=== PATIENT | female | born 1985 | race Caucasian/White ===

== ENCOUNTER 2019-04-02 12:48 | Emergency (ER) | payer OTHER ==
[2019-04-02] MEDS ORDERED: Alteplase* 100 MG VIAL ONE (12:57)
[2019-04-02 13:28] LABS: ABS Eosinophils 0.1 10^3/ul (0-0.6); ABS Lymphocytes 2.7 10^3/ul (1.0-4.8); ABS Monocytes 0.6 10^3/ul (0-0.8); ABS Neutrophils 4.4 10^3/ul (1.5-7.7); Eosinophil % 0.8 %; Hematocrit 38 % (35-47); Hemoglobin 12.9 g/dL (12.0-16.0); Lymphocyte % 34.6 %; Mean Corpuscular HGB Conc 34 g/dL (31-36); Mean Corpuscular Hemoglobin 30 pg (27-31); Mean Corpuscular Volume 89 fL (80-97); Mean Platelet Volume 8.2 fL (7.4-10.4); Nucleated Red Blood Cells % 0.1; Platelet Count 264 10^3/uL (150-450); Red Blood Count 4.29 10^6 /uL (3.70-4.87); Red Cell Distribution Width 13 % (10-15); White Blood Count 7.8 10^3/uL (3.5-10.8)
[2019-04-02 13:44] LABS: Activated Partial Thrombo Time 32.2 seconds (26.0-38.0); Albumin 4.4 g/dL (3.2-5.2); Anion Gap 9 mmol/L (2-11); CO2 Carbon Dioxide 27 mmol/L (22-32); Calcium 9.4 mg/dL (8.6-10.3); Chloride 102 mmol/L (101-111); INR 0.91 (0.82-1.09); Potassium 3.6 mmol/L (3.5-5.0); Sodium 138 mmol/L (135-145)
[2019-04-02 13:50] LABS: ALT 18 U/L (7-52); AST 22 U/L (13-39); Albumin/Globulin Ratio 1.6 (1-3); Alkaline Phosphatase 63 U/L (34-104); BUN/Creatinine Ratio 14.4 (8-20); Blood Urea Nitrogen 14 mg/dL (6-24); Cholesterol 198 mg/dL; EGFR African American 79.1 (>60); EGFR Non-African American 65.4 (>60); Globulin 2.7 g/dL (2-4); Glucose 90 mg/dL (70-100); HDL Cholesterol 88.2 mg/dL; LDL Cholesterol 84 mg/dL; Total Protein 7.1 g/dL (6.4-8.9); Triglycerides 131 mg/dL
[2019-04-02 13:55] LABS: Urine Appearance Clear; Urine Bilirubin Negative (Negative); Urine Blood Negative (Negative); Urine Color Straw; Urine Glucose Negative (Negative); Urine Ketones Negative (Negative); Urine Nitrite Negative (Negative); Urine Protein Negative (Negative); Urine Specific Gravity 1.003 (1.010-1.030); Urine Urobilinogen Negative (Negative)
--- NOTE | 2019-04-02 14:15 | ED ---
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 A code tonya was called at 12:50 during Triage but was called off after the pt received a brain CT. TPA was not administered due to the pt not being in a stroke. The pt reported that she was having an occluded vision described as blurry starting at 1000 this morning. She attempted to text her friends but was unable to understand what she was typing. She describes the occlusion as blurry. She left [place] to come to the ED and began experiencing R sided numbness that originated in her R leg and extended to her R arm and her tongue. The pt also reported that she felt dizzy and had memory loss. The pt stated that she has a Hx of migraines but did not experience a headache with this episode. She also reported that she has had similar episodes in the past but they did not last this long. She reported that nothing alleviated or aggravated her symptoms. 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 Negative: Headache TPA Considered: No - Jennifer Smith was called off after the pt received a brain CT - Allergy/Home Medications Allergies/Adverse Reactions: Allergies Allergy/AdvReac Type Severity Reaction Status Date / Time No Known Allergies Allergy Verified 04/02/19 13:24 Home Medications: Home Medications Ibuprofen TAB* [Advil TAB*] 200 mg PO Q6HR PRN 04/02/19 [History Confirmed 04/02] PMH/Surg Hx/FS Hx/Imm Hx Previously Healthy: No Endocrine/Hematology History: Denies: Hx Diabetes Neurological History: Reports: Hx Headaches - Associated with migraines, Hx Migraine - has 2 different types: headaches or numbness, lasts 10 minutes max for both - Surgical History Surgical History: None Infectious Disease History: No Infectious Disease History: Denies: Traveled Outside the [place] in Last 30 Days - Family History Known Family History: Positive: Other - Skin cancer Negative: Cardiac Disease, Hypertension, Diabetes - Social History Alcohol Use: Occasionally Hx Substance Use: No Substance Use Type: Reports: None Hx Tobacco Use: Yes Smoking Status (MU): Former Smoker Review of Systems Positive: Fatigue, Other - dizziness Positive: Blurred Vision Neurological: Other - POSITIVE: was unable to understand text messages both sending and receiving, memory loss Positive: Weakness, Numbness - RLE, RUE, tongue. Negative: Headache All Other Systems Reviewed And Are Negative: Yes Physical Exam - Summary Physical Exam Summary: Appearance: The patient is well-nourished in no acute distress and in no acute pain. Skin: The skin is warm and dry and skin color reflects adequate perfusion. HEENT: The head is normocephalic and atraumatic. The pupils are equal and reactive. The conjunctivae are clear and without drainage. Nares are patent and without drainage. Mouth reveals moist mucous membranes and the throat is without erythema and exudate. The external ears are intact. The ear canals are patent and without drainage. The tympanic membranes are intact. Neck: The neck is supple with full range of motion and non-tender. There are no carotid bruits. There is no neck vein distension. Respiratory: Chest is non-tender. Lungs are clear to auscultation and breath sounds are symmetrical and equal. Cardiovascular: Heart is regular rate and rhythm. There is no murmur or rub auscultated. There is no peripheral edema and pulses are symmetrical and equal. Abdomen: The abdomen is soft and non-tender. There are normal bowel sounds heard in all four quadrants and there is no organomegaly palpated. Musculoskeletal: There is no back tenderness noted. Extremities are non-tender with full range of motion. There is good capillary refill. There is no peripheral edema or calf tenderness elicited. Neurological: Patient is alert and oriented to person, place and time. The patient has symmetrical motor strength in all four extremities. Cranial nerves are grossly intact. Deep tendon reflexes are symmetrical and equal in all four extremities. Psychiatric: The patient has an appropriate affect and does not exhibit any anxiety or depression. NIH Scale: 0 Triage Information Reviewed: Yes Vital Signs On Initial Exam: Initial Vitals Temp Pulse Resp BP Pulse Ox 99.2 F 72 12 129/84 99 04/02/19 12:50 04/02/19 12:50 04/02/19 12:50 04/02/19 12:50 04/02/19 12:50 Vital Signs Reviewed: Yes Diagnostics - Vital Signs Vital Signs Temp Pulse Resp BP Pulse Ox 04/02/19 13:24 62 15 99 04/02/19 13:19 100 04/02/19 13:12 70 14 115/76 99 04/02/19 12:50 99.2 F 72 12 129/84 99 - Laboratory Lab Results: Lab Results 04/02/19 04/02/19 04/02/19 Range/Units 13:12 13:12 13:12 WBC 7.8 (3.5-10.8) 10^3/uL RBC 4.29 (3.70-4.87) 10^6 /uL Hgb 12.9 (12.0-16.0) g/dL Hct 38 (35-47) % MCV 89 (80-97) fL MCH 30 (27-31) pg MCHC 34 (31-36) g/dL RDW 13 (10-15) % Plt Count 264 (150-450) 10^3/uL MPV 8.2 (7.4-10.4) fL Neut % (Auto) 56.2 % Lymph % (Auto) 34.6 % Citrus % (Auto) 8.0 % Eos % (Auto) 0.8 % Baso % (Auto) 0.4 % Absolute Neuts (auto) 4.4 (1.5-7.7) 10^3/ul Absolute Lymphs (auto) 2.7 (1.0-4.8) 10^3/ul Absolute Monos (auto) 0.6 (0-0.8) 10^3/ul Absolute Eos (auto) 0.1 (0-0.6) 10^3/ul Absolute Basos (auto) 0.0 (0-0.2) 10^3/ul Absolute Nucleated RBC 0.0 10^3/ul Nucleated RBC % 0.1 INR (Anticoag Therapy) 0.91 (0.82-1.09) APTT 32.2 (26.0-38.0) seconds Sodium 138 (135-145) mmol/L Potassium 3.6 (3.5-5.0) mmol/L Chloride 102 (101-111) mmol/L Carbon Dioxide 27 (22-32) mmol/L Anion Gap 9 (2-11) mmol/L BUN 14 (6-24) mg/dL Creatinine 0.97 H (0.51-0.95) mg/dL Est GFR ( Amer) 79.1 (>60) Est GFR (Non-Af Amer) 65.4 (>60) BUN/Creatinine Ratio 14.4 (8-20) Glucose 90 (70-100) mg/dL POC Glucose (mg/dL) (70-100) mg/dL Lactic Acid (0.5-2.0) mmol/L Calcium 9.4 (8.6-10.3) mg/dL Total Bilirubin 0.60 (0.2-1.0) mg/dL AST 22 (13-39) U/L ALT 18 (7-52) U/L Alkaline Phosphatase 63 (34-104) U/L Troponin I 0.00 (<0.04) ng/mL Total Protein 7.1 (6.4-8.9) g/dL Albumin 4.4 (3.2-5.2) g/dL Globulin 2.7 (2-4) g/dL Albumin/Globulin Ratio 1.6 (1-3) Triglycerides 131 mg/dL Cholesterol 198 mg/dL LDL Cholesterol 84 mg/dL HDL Cholesterol 88.2 mg/dL Beta HCG, Quant Pending Urine Color Urine Appearance Urine pH (5-9) Ur Specific [place] (1.010-1.030) Urine Protein (Negative) Urine Ketones (Negative) Urine Blood (Negative) Urine Nitrate (Negative) Urine Bilirubin (Negative) Urine Urobilinogen (Negative) Ur Leukocyte Esterase (Negative) Urine Glucose (Negative) 04/02/19 04/02/19 04/02/19 Range/Units 13:12 13:15 13:47 WBC (3.5-10.8) 10^3/uL RBC (3.70-4.87) 10^6 /uL Hgb (12.0-16.0) g/dL Hct (35-47) % MCV (80-97) fL MCH (27-31) pg MCHC (31-36) g/dL RDW (10-15) % Plt Count (150-450) 10^3/uL MPV (7.4-10.4) fL Neut % (Auto) % Lymph % (Auto) % Citrus % (Auto) % Eos % (Auto) % Baso % (Auto) % Absolute Neuts (auto) (1.5-7.7) 10^3/ul Absolute Lymphs (auto) (1.0-4.8) 10^3/ul Absolute Monos (auto) (0-0.8) 10^3/ul Absolute Eos (auto) (0-0.6) 10^3/ul Absolute Basos (auto) (0-0.2) 10^3/ul Absolute Nucleated RBC 10^3/ul Nucleated RBC % INR (Anticoag Therapy) (0.82-1.09) APTT (26.0-38.0) seconds Sodium (135-145) mmol/L Potassium (3.5-5.0) mmol/L Chloride (101-111) mmol/L Carbon Dioxide (22-32) mmol/L Anion Gap (2-11) mmol/L BUN (6-24) mg/dL Creatinine (0.51-0.95) mg/dL Est GFR ( Amer) (>60) Est GFR (Non-Af Amer) (>60) BUN/Creatinine Ratio (8-20) Glucose (70-100) mg/dL POC Glucose (mg/dL) 90 (70-100) mg/dL Lactic Acid 1.5 (0.5-2.0) mmol/L Calcium (8.6-10.3) mg/dL Total Bilirubin (0.2-1.0) mg/dL AST (13-39) U/L ALT (7-52) U/L Alkaline Phosphatase (34-104) U/L Troponin I (<0.04) ng/mL Total Protein (6.4-8.9) g/dL Albumin (3.2-5.2) g/dL Globulin (2-4) g/dL Albumin/Globulin Ratio (1-3) Triglycerides mg/dL Cholesterol mg/dL LDL Cholesterol mg/dL HDL Cholesterol mg/dL Beta HCG, Quant Urine Color Straw Urine Appearance Clear Urine pH 7.0 (5-9) Ur Specific [place] 1.003 L (1.010-1.030) Urine Protein Negative (Negative) Urine Ketones Negative (Negative) Urine Blood Negative (Negative) Urine Nitrate Negative (Negative) Urine Bilirubin Negative (Negative) Urine Urobilinogen Negative (Negative) Ur Leukocyte Esterase Negative (Negative) Urine Glucose Negative (Negative) Result Diagrams: 04/02/19 13:12 04/02/19 13:12 Lab Statement: Any lab studies that have been ordered have been reviewed, and results considered in the medical decision making process. - Radiology Chest X-Ray Radiology Interpretation Completed By: Radiologist Summary of Radiographic Findings: NO EVIDENCE FOR ACTIVE CARDIOPULMONARY DISEASE. ED Physician has reviewed this report. Brain MRI Radiology Interpretation Completed By: Radiologist Summary of Radiographic Findings: NORMAL BRAIN. ED Physician has reviewed this report. - CT Brain CT CT Interpretation Completed By: Radiologist Summary of CT Findings: NO EVIDENCE FOR GROSS ACUTE INFARCT, MASS EFFECT OR HEMORRHAGE. ED Physician has reviewed this report. Head CTA CT Interpretation Completed By: Radiologist Summary of CT Findings: 1. NO INTERNAL CAROTID ARTERY STENOSIS BY NASCET CRITERIA. 2. NO ANEURYSM, VASCULAR MALFORMATION, OCCLUSION, OR STENOSIS OF THE VISUALIZED INTRACRANIAL CIRCULATION. ED Physician has reviewed this report. - Ultrasound No standard instances Ultrasound Interpretation Completed By: Radiologist Summary of Ultrasound Findings: Left ventricle: The cavity size is normal. Wall thickness is. normal. Systolic function is normal. The estimated ejection. fraction is 55-60%. Wall motion is normal; there are no regional. wall motion abnormalities. Left ventricular diastolic function. parameters are normal. Right ventricle: The cavity size is normal. Systolic function is. normal. Left atrium: The atrium is normal in size. Right atrium: The atrium is normal in size. Atrial septum: A PFO is demonstrated by agitated saline contrast. Mitral valve: The leaflets are normal thickness. There is no. evidence of stenosis. There is no significant regurgitation. Aortic valve: The valve is probably trileaflet. The leaflets are. normal thickness. There is no evidence of stenosis. There is no. significant regurgitation. Tricuspid valve: The leaflets are normal thickness. There is no. evidence of stenosis. There is physiologic regurgitation. Pulmonic valve: Not well visualized. There is no significant. regurgitation. Aorta: Aortic arch: The aortic arch is appears normal. The aortic root is not dilated. Pericardium: There is no significant pericardial effusion. Pulmonary arteries: Systolic pressure can not be accurately estimated. Systemic veins: Inferior vena cava: The vessel is normal in size. The respirophasic. diameter changes are in the normal range (>= 50%). ED Physician has reviewed this report. - EKG 1354 Cardiac Rate: Bradycardia - [address] Segment: Normal Summary of EKG Findings: Atrial bradycardia with a rhythm of 57 BPM, normal ST, no ectopy, no STEMI NIH Scale - NIH Scale Level of Consciousness: Alert/Keenly Responsive Ask Patient the Month and His/Her Age: Both Correct Ask Pt to Open/Close Eyes and [place] Erector/Release Non-Paretic Hand: Both Correctly Best Gaze (Only Horizontal Eye Movement): Normal Visual Field Testing: No Visual Loss Facial Paresis-Pt to Smile & Close Eyes or Grimace Symmetry: Normal/Symmetrical Motor Function - Right Arm: No Drift-Holds 10 Seconds Motor Function - Left Arm: No Drift-Holds 10 Seconds Motor Function - Right Leg: No Drift-Holds 10 Seconds Motor Function - Left Leg: No Drift-Holds 10 Seconds Limb Ataxia-Must be out of Proportion to Weakness Present: Absent Sensory (Use Pinprick to Test Arms/Legs/Trunk/Face): Normal Best Language (Describe Picture, Name Items): No Aphasia Dysarthria (Read Several Words): Normal Extinction and Inattention: No Abnormality Total Score: 0 Re-Evaluation - Re-Evaluation First Eval Re-Evaluation Time: 16:00 Change: Improved Comment: Pt was seen by Dr. Barbosa and informed on the discharge plan. She is agreeable. Course/Dx - Course Course Of Treatment: A jennifer zuñiga was called on Ms. Rodriguez prior to my seeing her. I responded and evaluated her briefly. 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 She had a history of similar symptoms prior to migraines. Dr. Barbosa came in response to the jennifer zuñiga and evaluated her. At first he recommended admission however an MRI was obtained she was still in the emergency department and was negative. At that point he felt that it was safe to let her go. She will follow-up with Dr. Barbosa in 2 weeks. - Diagnoses Provider Diagnoses: Atypical migraine Discharge - Sign-Out/Discharge Documenting (check all that apply): Patient Departure Patient Received Moderate/Deep Sedation with Procedure: No - Discharge Plan Condition: Stable Disposition: HOME Patient Education Materials: Migraine Headache (ED) Forms: *Work Release Referrals: MaryGayatri odom MD [Primary Care Provider] - Yash Barbosa MD [Medical Doctor] - Additional Instructions: Follow up with your Primary care physician in 2-[address] Barbosa in two weeks. Return to the Emergency Department with any new or worsening symptoms. Take a baby aspirin everyday. - Billing Disposition and Condition Condition: STABLE Disposition: Home - Attestation Statements Document Initiated by Cl[place]is: Yes Documenting Khanhibe: Elroy Hernandez Provider For Whom Clovis is Documenting (Include Credential): Darius Uriostegui MD Scribe Attestation: Elroy Sosa, scribed for Darius Uriostegui MD on 04/02/19 at 1841. Scribe Documentation Reviewed: Yes Provider Attestation: The documentation as recorded by the Elroy landaverde accurately reflects the service I personally performed and the decisions made by me, Darius Uriostegui MD Status of Scribe Document: Viewed
[2019-04-02 14:40] LABS: HCG Pregnancy < 0.60 mIU/mL
[2019-04-02] MEDS ORDERED: Iohexol 350* (CONTRAST) 500 ML MDV IV ONE (14:42)
--- NOTE | 2019-04-02 15:24 | ECHO ---
*[facility]* [place] [address] Fax #: [phone] Transthoracic Echocardiogram Patient: Michael, Height: 66 in / Lynsey 167.6 cm : 1985 Weight: 161.7 lb / Study Date: 04/02/2019 73.5 kg Age: 33 BP: 115 / 76 Gender: F BMI/BSA: 26.1 kg/m^2 HR: 57 bpm / 1.83 m^2 *Corporate Legal Secretary: * Zoila Trejo [facility] *Referring Physician: * Darrel MckennaReading Physician: * Stanton Baker MD Indications: TIA. History: Migraines. Conclusions Summary: 1. Left ventricle: The cavity size is normal. Wall thickness is normal. Systolic function is normal. The estimated ejection fraction is 55-60%. Wall motion is normal; there are no regional wall motion abnormalities. 2. Right ventricle: The cavity size is normal. Systolic function is normal. 3. Left atrium: The atrium is normal in size. 4. Right atrium: The atrium is normal in size. 5. Atrial septum: A PFO is demonstrated by agitated saline contrast. The interatrial septum is mobile consistent with an atrial septal aneurysm. 6. No significant valvular abnormalities noted. Recommendations: None prior for comparison at time of intepretation. Study data: Transthoracic echocardiogram. Procedure: Transthoracic echocardiography was performed. Image quality was good. A bubble study was performed. Images 32 and 33. Complete 2D, spectral Doppler, and color flow Doppler. Location: Emergency department. Patient status: Inpatient. Patient room number: 6. Rhythm: Normal sinus rhythm. Findings Left ventricle: The cavity size is normal. Wall thickness is normal. Systolic function is normal. The estimated ejection fraction is 55-60%. Wall motion is normal; there are no regional wall motion abnormalities. Left ventricular diastolic function parameters are normal. Right ventricle: The cavity size is normal. Systolic function is normal. Left atrium: The atrium is normal in size. Right atrium: The atrium is normal in size. Atrial septum: A PFO is demonstrated by agitated saline contrast. Mitral valve: The leaflets are normal thickness. There is no evidence of stenosis. There is no significant regurgitation. Aortic valve: The valve is probably trileaflet. The leaflets are normal thickness. There is no evidence of stenosis. There is no significant regurgitation. Tricuspid valve: The leaflets are normal thickness. There is no evidence of stenosis. There is physiologic regurgitation. Pulmonic valve: Not well visualized. There is no significant regurgitation. Aorta: Aortic arch: The aortic arch is appears normal. The aortic root is not dilated. Pericardium: There is no significant pericardial effusion. Pulmonary arteries: Systolic pressure can not be accurately estimated. Systemic veins: Inferior vena cava: The vessel is normal in size. The respirophasic diameter changes are in the normal range (>= 50%). Measurements Left ventricle Value Ref Aortic valve Value Ref JAREN, LAX 5.0 cm 3.8 - 5.2 Elizabeth diam, ED 2.2 cm ---- ESD, LAX 3.4 cm 2.2 - 3.5 Peak v, S 1.55 m/sec ---- FS, LAX 32 % 27 - 45 VTI, S 31.9 cm ---- PW, ED, LAX 0.7 cm 0.6 - 0.9 Mean grad, S 5.0 mm Hg ---- EF 60 % 54 - 74 Peak grad, S 10.0 mm Hg ---- E', lat elizabeth, TDI 15.2 cm/sec >=10.0 E/e', lat elizabeth, 4 Mitral valve Value Ref TDI Peak E 0.65 m/sec ---- E', med elizabeth, TDI 13.1 cm/sec >=7.0 Peak A 0.54 m/sec ---- E/e', med elizabeth, 5 Decel time 185 ms ---- TDI Peak E/A ratio 1.2 ---- E', avg, TDI 14.2 cm/sec E/e', avg, TDI 5 <=14 Pulmonic valve Value Ref Peak v, S 0.86 m/sec ---- LVOT Value Ref Peak grad, S 3.0 mm Hg ---- Peak ruddy, S 1.21 m/sec Peak grad, S 6 mm Hg Aortic root Value Ref Mean grad, S 3 mm Hg Root diam 2.7 cm <3.5 Ventricular septum Value Ref Ascending aorta Value Ref IVS, ED 0.7 cm 0.6 - 0.9 AAo AP diam, S 2.5 cm ---- Right ventricle Value Ref Aortic arch Value Ref JAREN, LAX 3.1 cm Arch diam 2.1 cm ---- JAREN minor ax, A4C 2.9 cm 1.9 - 3.5 mid Decending aorta Value Ref Wesley peak ruddy 1.21 m/sec ---- Left atrium Value Ref AP dim, ES 2.80 cm 2.70 - Inferior vena cava Value Ref 3.80 Diam 1.7 cm ---- ML dim, A4C 3.1 cm SI dim, A4C 4.4 cm Vol/bsa, ES, A/L 30 ml/m^2 16 - 34 Right atrium Value Ref SI dim, ES 3.7 cm 3.4 - 5.3 ML dim, ES, A4C 3.0 cm 2.6 - 4.4 Estimated RAP 8 mm Hg Legend: (L) and (H) reva values outside specified reference range. Prepared and electronically signed by Stanton Baker MD 04/02/2019 15:23
[2019-04-02 16:12] VITALS: BP 117/76
--- NOTE | 2019-04-02 16:52 | CONS ---
CC: Dr. Barbosa; Dr. Uriostegui * CONSULTATION REPORT: DATE OF CONSULT: 04/02/19 - EMERGENCY DEPT REQUESTING PHYSICIAN IN CONSULT: Dr. Uriostegui. MY ATTENDING PHYSICIAN WHILE IN THE HOSPITAL: Dr. Roverto Barbosa (report dictated by Darrel Mckenna NP). REASON FOR NEUROLOGICAL CONSULTATION: Nicola zuñiga. HISTORY OF PRESENT ILLNESS: Ms. 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 She states that she has had a history of this in the past and was diagnosed with hemiplegic migraines and complex migraines. She states that this episode was different today and the sense that the numbness and tingling lasted longer and also it went into her face which was not typical. She also stated that she was trying to walk up the stairs and she was having trouble with her left leg. She was concerned because by 12:30 she started having episodes of confusion and difficulty with word-finding. She states that she also had some double vision. She presented to the ER because by 12:30 she was not getting better. She said typically her symptoms last anywhere from 15 to 30 minutes. She denied any facial drooping. She denied having any symptoms on her right side. She did not have a headache. She does carry a history of again complex migraines with left-sided numbness and tingling and sometimes weakness, in addition to this also has a history of atypical migraines as well. She says the last time she had her atypical migraine was over a year ago and the last time she had a complex migraine was probably the same about over a year ago and she had been taking Maxalt as needed for them. In addition to this, she has not seen her neurologist in some time. Given the fact that the symptoms were little different with this, they were longer, she came into the ER. Benedicto zuñiga was called at 12:30. Her initial NIH Stroke Scale was 0 and in fact when we were examining her, her symptoms were resolving to the point where she is now back to her baseline. Because of the neurological deficits, we were asked to evaluate again in consult. PAST MEDICAL HISTORY: Significant for: 1. Complex migraines. 2. Atypical migraines. PAST SURGICAL HISTORY: She denied. HOME MEDICATIONS: Include: 1. Ibuprofen 1 tablet every 6 hours as needed. 2. Maxalt, she takes 1 tab p.r.n. on the onset of headache. Again, she has not taken this in over a year. ALLERGIES TO MEDICATIONS: Include no known drug allergies. FAMILY HISTORY: There was no report of strokes with her mother or father. SOCIAL HISTORY: She is a grad student at [employer]. She used to smoke. She quit over 10 years ago. She drinks alcohol 2 to 3 times a week socially and she denied any recreational drug abuse. REVIEW OF SYSTEMS: There is no documented fever. There is no significant weight change. She did admit to double vision. There is no ear discharge. She denies having any chest pain. There is no orthopnea. There is no nocturnal dyspnea. She denied having any abdominal pain. There was no nausea. There is no vomiting. There was no dysuria, no frequency. No seizure. There was no loss of consciousness. No pruritus and no skin ulcerations. Review of 14 systems was completed, all others negative. PHYSICAL EXAM: Vital Signs: Blood pressure 115/76, pulse 68, respirations were 14, O2 sat 100%, temperature 99.2. Generally, at this time, Ms. Rodriguez is a 33-year- old female patient. She appears to be well nourished and well developed. She is sitting in the ED stretcher. She does not appear to be in any acute distress. HEENT: Head: Atraumatic, normocephalic. Eyes: EOMs are intact. Sclerae anicteric and not pale. Throat: Oral mucosa appears to be moist. No oropharyngeal erythema. Neck was supple. Heart: Sounds S1, S2. No murmurs, rubs, or gallops. Lungs: Clear to auscultation bilaterally. Abdomen: Soft, flat, nontender. Extremities: There was no cyanosis or edema noted. Skin: No rashes or lesions noted. Neurologically, she is right- handed. Mental Status: She is awake. She is alert. She is oriented x3. She is interactive with normal affect. Her speech is fluent. There was no dysarthria. She was able to do reading and repetition and naming were all intact. Cranial Nerves: Cranial nerve I was not tested. Her pupils were equal and reactive to light. Her visual august by confrontation were intact. There was no ptosis. EOMs were intact without nystagmus. Sensation was intact to the face bilaterally. There was no facial drooping. Her face was symmetric. Hearing was grossly intact. Tongue was midline. Palate elevates symmetrically. She had 5/5 strength at the SCM. Again, tongue midline. No atrophy or fasciculations noted. Motor Exam: She had no rigidity, no bradykinesia. She had no pronator drift. She had no drift of the upper extremities or lower extremities. She had 5/5 strength in the upper extremities and lower extremities. Coordination: [id number]-un-[id number] was intact bilaterally. [id number]-bs-[id number] intact bilaterally. She had no obvious tremors noted. Reflexes were 2+ at the patella, 2+ at the biceps. Babinski's was absent. Sensation was intact to the lower extremities to light touch and to the upper extremities. She had no neglect noted. Gait was not tested. DIAGNOSTIC STUDIES/LAB DATA: WBC 7.8, RBC of 4.29, hemoglobin of 12.9, hematocrit 38, platelet count of 264. INR 0.91, PTT of 32.2. Sodium was 138, potassium 3.6, chloride of 102, bicarb 27, BUN 14, creatinine of 0.97, glucose was 90, lactic 1.5, calcium 9.4. Total bili 0.6, AST 22, ALT 18, alk phos 64. Troponin 0. LDL was 84. Urine obtained and was negative. Serum is pending. She did have an emergent CAT scan. Prior to the CAT scan, the patient was inquired if she was . She stated that her period was 2 weeks ago. She gave us permission to go ahead and do the CT without waiting for the result at this point. CT of the brain: The impression was noted, no evidence for gross acute infract, mass effect, or hemorrhage. She had an EKG obtained, which showed a sinus bradycardia, rate of 57. No ST elevations or T-wave inversions. Old medical records were reviewed. ASSESSMENT AND PLAN: Ms. Rodriguez is a 33-year-old female patient presenting to the ER today with focal neurological deficits. Fortunately, her symptoms have now resolved. Her NIH Stroke Scale initially was 0. She does have a history of symptoms similar to this previously with her headaches; however, today the symptoms lasted longer and she had new symptoms involving the face and weakness. They have resolved. Given the changes, I think she should be admitted under observation status for further evaluation. Transient ischemic attack and stroke are less likely; however, I do think it is prudent to get an MRI without contrast, checking a CTA of the head and neck looking for any significant stenosis of the intracranial circulation and also I think it is appropriate to evaluate for any aneurysms as well. I will check an echo to look for any patent foramen ovale or cardiac thrombus. She will be placed on telemetry. I will hold off on giving her any antiplatelets at this point as my suspicion for stroke is low. I would like to also recommend frequent neuro checks and again tPA was not given given that she resolved and her low NIH Stroke Scale. The other issue is her migraine. At this point, I do believe that this probably represented a complex migraine, but again given the change in her symptoms, I do think transient ischemic attack workup is appropriate. I did tell her going forward that she needs to just stop taking the Maxalt, which she says that she will comply with. She is not smoking anymore fortunately and she is not on any anymore control, which I had recommended. The patient will see us back in clinic for further long-term management of her migraines in the next 1 to 2 weeks and she can follow up with me. I did discuss the case today with Dr. Barbosa and he was in agreement. He was available for the exam. In addition, I relayed my recommendations to Dr. Uriostegui and we also touch based with the hospitalist as well and they were in agreement. Thank you for allowing me to participate in the care of this patient. Please do not hesitate to call us with any concerns or questions. DARREL MCKENNA, [place] [id number]/[facility] #: [id number] [place]
== END 2019-04-02 16:11 | disposition home or self-care (01) ==
LOC: ED 12:48
DX: G43.809 Other migraine, not intractable, without status migrainosus (principal); R94.31 Abnormal electrocardiogram [ECG] [EKG]; R20.0 Anesthesia of skin; R41.3 Other amnesia; R41.0 Disorientation, unspecified; Z87.891 Personal history of nicotine dependence
CPT/HCPCS: 36415; 70450; 70496; 70498; 70551; 71045; 80053; 80061; 81003; 83605; 84484; 84702; 85025; 85610; 85730; 93005; 93306; 99284; J2997; Q9967